=== PATIENT | female | born 1960 | race Caucasian/White ===

== ENCOUNTER → 2020-09-13 | Outpatient (REF) | payer OTHER ==
[2020-09-13 13:21] LABS: BACTERIA, URINE AUTO NEGATIVE (NEGATIVE); RBC, URINE AUTO 0 /HPF (0-3); SQUAMOUS EPITHELIAL CELL UR AU 0 /HPF (0-6); WBC, URINE AUTO 0 /HPF (0-3)
== END ==
LOC: M SMT 12:45
PROVIDERS: ATTEND Specialist
DX: N39.46 Mixed incontinence (principal)